=== PATIENT | male | born 2000 | race Caucasian/White ===

== ENCOUNTER → 2021-03-25 09:56 | Outpatient (BNVA) | payer OTHER, MEDICAID, SELFPAY | PROVIDERS: Visit Provider Emergency Medicine | DX: Z20.822 Contact with and (suspected) exposure to COVID-19 (principal) | CPT/HCPCS: 87635 ==

== ENCOUNTER 2023-10-21 19:10 | Emergency (ER) | payer MEDICAID, SELFPAY ==
[2023-10-21 19:28] VITALS: BP 114/76; PULSE 102; RESP 16; TEMP 36.9; O2SAT 100
--- NOTE | 2023-10-21 19:59 | ED_ITS ---
Documented by User: AISSATOU Valentino 10/21/23 22:05 HPI - General Adult 2 General: Chief complaint: General Medical Stated complaint: weak, abd pain rash jaw is tight Time Seen by Provider: 10/21/23 19:15 Source: patient Mode of arrival: ambulatory Limitations: no limitations History of Present Illness: Patient is a 23-year-old male presents to the emergency department complaining of multiple symptoms onset today after work. Patient works at a [employer] and states that when he got home he developed sudden facial numbness, jaw pain, weakness, and a rash that started on his chest and is spreading. He is also noting some difficulty with opening his mouth. He has never had the symptoms before and denies eating any new exotic foods. He does state that he is a smoker and smoked weed earlier. Parents in the room alleged that they want him tested for drugs. Patient denies any other symptoms at this time. He denies any known allergies. He has worked at the [employer] for a few years and states he has never had this issue before. He denies any chest pain, breathing difficulties, abdominal pain, or any other symptoms at this time. Onset (ago): hour(s) Associated symptoms: Reports rash; Deny chest pain, dyspnea, headache(s), nausea, palpitations or vomiting Review of Systems 2 General: Reports: 10 or more systems reviewed and unremarkable except in HPI and below Const: Denies: fever(s), chills or fatigue Eyes: Denies: change in vision ENMT: Reports: other (Jaw pain); Denies: throat pain, ear or mastoid pain or nasal discharge Card: Denies: chest pain, palpitations, swelling of feet/ankles or lightheadedness Resp: Denies: dyspnea, productive cough or wheezing GI: Denies: abdominal pain, nausea, vomiting, diarrhea or constipation : Denies: flank pain, difficulty urinating, dysuria or urinary frequency Musc: Denies: neck pain, back pain or joint pain Skin/Breast: Reports: rash Neuro: Reports: weakness in extremities and other (Facial numbness); Denies: headache(s) PFSH ED 2 PFSH: Social History Smoking and tobacco/nicotine status: current every day tobacco/nicotine user cigarettes Quit status (tobacco/nicotine): not considering quitting Alcohol intake: current Alcohol intake frequency: holidays/special occasions only Substance/Drug Use: never Physical Exam 2 Const: COMMON NORMALS: average body habitus, patient oriented x3 and no limitations GENERAL APPEARANCE: cooperative, well developed and anxious O RIENTATION/CONSCIOUSNESS: Yes awake, Yes oriented to person, Yes oriented to place and Yes oriented to time HENMT: COMMON NORMALS: normocephalic, atraumatic, hearing grossly normal bilaterally and Normal external nose present HEAD & SCALP: normocephalic and atraumatic FACE & SINUS: normal facial exam NOSE: Normal external nose present THROAT: posterior oropharynx abnormal erythema Eye: COMMON NORMALS: Equal, round and reactive pupils present, EOMs intact bilaterally and conjunctivae normal CONJUNCTIVA: Yes conjunctivae normal P UPIL: Yes Equal, round and reactive pupils present Neck/C-Spine: COMMON NORMALS: full ROM, no lymphadenopathy, supple, no meningeal signs and no JVD GENERAL: Yes normal visual inspection Chest: CHEST: Yes rash (Urticarial appearing rash with distal spreading) Resp: COMMON NORMALS: normal respiratory effort, No retractions, No use of accessory muscles and clear to auscultation bilaterally AUSCULTATION: clear to auscultation bilaterally Cardio: COMMON NORMALS: no JVD, regular rate, regular rhythm, No clicks present (Cardio), No murmurs present (Cardio) and No rub (Cardio) RATE: r egular rate RHYTHM: regular rhythm GI: COMMON NORMALS: Normal to inspection, nondistended, normoactive bowel sounds present, Soft to palpation and non-tender AUSCULTATION: Yes normoactive bowel sounds PALPATION: Yes Soft to palpation RECTAL EXAM: Yes deferred Extremity: COMMON NORMALS: normal to inspection, full ROM and capillary refill normal Neuro: COMMON NORMALS: patient oriented x3, CN's II-XII intact bilaterally, moves all extremities, no focal motor deficits and no sensory deficits noted SENSORIUM/ORIENTATION: Yes oriented to person, Yes oriented to place and Yes oriented to time MENINGEAL SIGNS: Yes no meningeal signs Psych: COMMON NORMALS: mental status grossly normal and Normal thought process present THOUGHT PROCESS: Normal thought process present Skin: NARRATIVE SKIN EXAM: Rash as previously noted under chest exam, distal spreading to the abdomen. Course 2 Vital Signs: Vital signs: Vital Signs Temperature 98.4 F 10/21/23 19:28 Pulse Rate 75 10/21/23 22:15 Respiratory Rate 16 10/21/23 22:15 Blood Pressure 113/64 10/21/23 22:15 Pulse Oximetry 98 10/21/23 22:15 Oxygen Delivery Me thod Room Air 10/21/23 21:30 MDM - General Adult Medical Decision Making Patient seen and evaluated today for weakness associated with rash, numbness, and jaw tightness. On arrival patient's vitals were unremarkable and I had little concern that he was having an anaphylactic reaction. Exam unremarkable for any angioedema, cardiopulmonary processes, or other abnormal findings. Patient appeared mildly anxious, however was cooperative. He did however have an urticarial appearing rash on his chest and abdomen. After a dose of Decadron and Benadryl, however, this improved. Blood work overall was negative for any signs of infection, electrolyte imbalances, or other concerning symptoms. His UA and urine drug screen were unremarkable aside from a positive marijuana screen, which he admits he smokes daily. Chest x-ray and EKG were also unremarkable. Due to his overall negative workup and clinical presentation, I believe the patient had an allergic reaction of unknown etiology. Family in the room states that he has had a similar incident in the past that also improved on its own. Patient's ED course has been stable and patient reports improvement of all of his symptoms upon recheck. Because of this, I feel confident that the patient can be discharged home with return precautions given for any acute worsening. Patient agrees with this plan. Lab Data I reviewed the patient's lab results. 10/21/23 20:13 10/21/23 20:13 Radiology Impressions Chest X-Ray 10/21/23 21:06 IMPRESSION: No acute findings. Laboratory Results WBC 12.99 10^3/uL (3.29-11.43) H 10/21/23 20:13 RBC 4.87 10^6/uL (3.85-5.65) 10/21/23 20:13 Hgb 15.00 g/dL (11.27-16.99) 10/21/23 20:13 Hct 43.7 % (37-53) 10/21/23 20:13 MCV 89.7 fl (82-101) 10/21/23 20:13 MCH 30.8 pg (27-33) 10/21/23 20:13 MCHC 34.3 g/dL (30-55) 10/21/23 20:13 RDW 12.1 % (12.1-15.1) 10/21/23 20:13 Plt Count 347 10^3/cmm (157-399) 10/21/23 20:13 MPV 9.1 fL (7.4-10.4) 10/21/23 20:13 Neut % (Auto) 75.0 % 10/21/23 20:13 Lymph % (Auto) 16.2 % 10/21/23 20:13 [place] % (Auto) 6.6 % 10/21/23 20:13 Eos % (Auto) 1.2 % 10/21/23 20:13 Baso % (Auto) 0.5 % 10/21/23 20:13 Neut # (Auto) 9.73 10^3/uL (1.8-7.7) H 10/21/23 20:13 Lymph # (Auto) 2.1 10^3/uL (0.8-4.8) 10/21/23 20:13 [place] # (Auto) 0.9 10^3/uL (0.2-0.9) 10/21/23 20:13 Eos # (Auto) 0.2 10^3/uL (0.0-0.8) 10/21/23 20:13 Baso # (Auto) 0.1 10^3/uL (0.0-0.1) 10/21/23 20:13 Nucleated RBC % (auto) 0 % 10/21/23 20:13 Nucleated RBCs # 0.0 /100WBC 10/21/23 20:13 Sodium 139 mmol/L (136-145) 10/21/23 20:13 Potassium 3.6 mmol/L (3.5-5.1) 10/21/23 20:13 Chloride 104 mmol/L (98-107) 10/21/23 20:13 Carbon Dioxide 19 mmol/L (22-29) L 10/21/23 20:13 Anion Gap 19.6 (5-19) H 10/21/23 20:13 BUN 14 mg/dL (6-20) 10/21/23 20:13 Creatinine 1.1 mg/dL (0.7-1.2) 10/21/23 20:13 GFR Calculation 83.7 mL/min (90-130) L 10/21/23 20:13 Glucose 148 mg/dL (65-115) H 10/21/23 20:13 Calculated Osmolality 291 mOsm/kg (285-295) 10/21/23 20:13 Calcium 10.0 mg/dL (8.5-10.5) 10/21/23 20:13 Total Bilirubin 0.3 mg/dL (0.15-1.2) 10/21/23 20:13 AST 18 U/L (0-40) 10/21/23 20:13 ALT 18 U/L (0-41) 10/21/23 20:13 Alkaline Phosphatase 78 U/L (40-130) 10/21/23 20:13 Total Protein 7.7 g/dL (6.6-8.7) 10/21/23 20:13 Albumin 4.7 g/dL (3.5-5.2) 10/21/23 20:13 Globulin 3.0 g/dL (1.3-4.6) 10/21/23 20:13 Urine Color Light yellow (Yellow) 10/21/23 20:15 Urine Appearance Clear (CLEAR) 10/21/23 20:15 Urine pH 8 (5-7) H 10/21/23 20:15 Ur Specific Emmet 1.015 (1.005-1.030) 10/21/23 20:15 Urine Protein Neg (Negative) 10/21/23 20:15 Urine Glucose (UA) Norm (Normal) 10/21/23 20:15 Urine Ketones Negative (Negative) 10/21/23 20:15 Urine Blood Neg (Negative) 10/21/23 20:15 Urine Nitrate Negative (Negative) 10/21/23 20:15 Urine Bilirubin Neg (Negative) 10/21/23 20:15 Prot Sulfosalicylic Acd Negative (Negative) 10/21/23 20:15 Urine Urobilinogen Neg mg/dL (Negative) 10/21/23 20:15 Ur Leukocyte Esterase Negative (Negative) 10/21/23 20:15 Urine Opiates Screen Negative ng/mL (Negative) 10/21/23 20:15 Ur Barbiturates Screen Negative ng/mL (Negative) 10/21/23 20:15 Ur Phencyclidine Scrn Negative ng/mL (Negative) 10/21/23 20:15 Ur Amphetamines Screen Negative ng/mL (Negative) 10/21/23 20:15 U Benzodiazepines Scrn Negative ng/mL (Negative) 10/21/23 20:15 Urine Cocaine Screen Negative ng/mL (Negative) 10/21/23 20:15 U Marijuana (THC) Screen Positive ng/mL (Negative) H 10/21/23 20:15 Group A Strep Rapid Negative (Negative) 10/21/23 20:24 All radiology interpretation(s) finalized by discharge Discharge Plan Discharge Patient Disposition: Home Clinical Impression: Allergic reaction Qualifiers: Encounter type: initial encounter Qualified Code(s): T78.40XA - Allergy, unspecified, initial encounter Condition: Stable Prescriptions: No Action albuterol sulfate 90 mcg/actuation HFA aerosol inhaler 2 puff inhalation Q6H PRN (Reason: shortness of breath or wheezing) Qty: 8.5 0RF azithromycin 250 mg tablet See Rx Instructions PO .COMPLEX Qty: 6 0RF Rx Instructions: take 2 tablets today (day 1), then one tablet for 4 days (days 2-5) PO yaetjmkadbdbxfc-zjzxkksmr-OL [Bromfed DM] 2-30-10 mg/5 mL syrup 7.5 ml PO Q6H PRN (Reason: cold symptoms) Qty: 160 0RF dexamethasone 2 mg tablet 6 mg PO DAILY 8 Days Qty: 24 0RF Discharge Orders: Discharge ED (Routine); Ordered 10/21/23 Ordered By: Vega Harris Discharge Diet: Usual diet Discharge Activity: Increase activity as tolerated Patient Instructions: Allergic Reaction Activity Restrictions/Additional Instructions: [id number] Benadryl for any recurrence of rash. Plenty of fluids. Follow-up with your primary care provider as needed. Return with any new or concerning symptoms. Stand Alone Forms: Work/School Release Coding Level of Care Code ED Forms Analysis Manager for Chg Fwd Documented by User: Dimitry Rosario, 10/22/23 05:33 HPI - General Adult 2 General: Chief complaint: General Medical Stated complaint: weak, abd pain rash jaw is tight Time Seen by Provider: 10/21/23 19:15 [facility] ED 2 PFSH: Social History Smoking and tobacco/nicotine status: current every day tobacco/nicotine user cigarettes Quit status (tobacco/nicotine): not considering quitting Alcohol intake: current Alcohol intake frequency: holidays/special occasions only Substance/Drug Use: never Course 2 Vital Signs: Vital signs: Vital Signs Temperature 98.4 F 10/21/23 19:28 Pulse Rate 75 10/21/23 22:15 Respiratory Rate 16 10/21/23 22:15 Blood Pressure 113/64 10/21/23 22:15 Pulse Oximetry 98 10/21/23 22:15 Oxygen Delivery Me thod Room Air 10/21/23 21:30 MDM - General Adult Medical Decision Making Patient seen and evaluated today for weakness associated with rash, numbness, and jaw tightness. On arrival patient's vitals were unremarkable and I had little concern that he was having an anaphylactic reaction. Exam unremarkable for any angioedema, cardiopulmonary processes, or other abnormal findings. Patient appeared mildly anxious, however was cooperative. He did however have an urticarial appearing rash on his chest and abdomen. After a dose of Decadron and Benadryl, however, this improved. Blood work overall was negative for any signs of infection, electrolyte imbalances, or other concerning symptoms. His UA and urine drug screen were unremarkable aside from a positive marijuana screen, which he admits he smokes daily. Chest x-ray and EKG were also unremarkable. Due to his overall negative workup and clinical presentation, I believe the patient had an allergic reaction of unknown etiology. Family in the room states that he has had a similar incident in the past that also improved on its own. Patient's ED course has been stable and patient reports improvement of all of his symptoms upon recheck. Because of this, I feel confident that the patient can be discharged home with return precautions given for any acute worsening. Patient agrees with this plan. Chart reviewed. Lab Data 10/21/23 20:13 10/21/23 20:13 Radiology Impressions Chest X-Ray 10/21/23 21:06 IMPRESSION: No acute findings. Laboratory Results WBC 12.99 10^3/uL (3.29-11.43) H 10/21/23 20:13 RBC 4.87 10^6/uL (3.85-5.65) 10/21/23 20:13 Hgb 15.00 g/dL (11.27-16.99) 10/21/23 20:13 Hct 43.7 % (37-53) 10/21/23 20:13 MCV 89.7 fl (82-101) 10/21/23 20:13 MCH 30.8 pg (27-33) 10/21/23 20:13 MCHC 34.3 g/dL (30-55) 10/21/23 20:13 RDW 12.1 % (12.1-15.1) 10/21/23 20:13 Plt Count 347 10^3/cmm (157-399) 10/21/23 20:13 MPV 9.1 fL (7.4-10.4) 10/21/23 20:13 Neut % (Auto) 75.0 % 10/21/23 20:13 Lymph % (Auto) 16.2 % 10/21/23 20:13 [place] % (Auto) 6.6 % 10/21/23 20:13 Eos % (Auto) 1.2 % 10/21/23 20:13 Baso % (Auto) 0.5 % 10/21/23 20:13 Neut # (Auto) 9.73 10^3/uL (1.8-7.7) H 10/21/23 20:13 Lymph # (Auto) 2.1 10^3/uL (0.8-4.8) 10/21/23 20:13 [place] # (Auto) 0.9 10^3/uL (0.2-0.9) 10/21/23 20:13 Eos # (Auto) 0.2 10^3/uL (0.0-0.8) 10/21/23 20:13 Baso # (Auto) 0.1 10^3/uL (0.0-0.1) 10/21/23 20:13 Nucleated RBC % (auto) 0 % 10/21/23 20:13 Nucleated RBCs # 0.0 /100WBC 10/21/23 20:13 Sodium 139 mmol/L (136-145) 10/21/23 20:13 Potassium 3.6 mmol/L (3.5-5.1) 10/21/23 20:13 Chloride 104 mmol/L (98-107) 10/21/23 20:13 Carbon Dioxide 19 mmol/L (22-29) L 10/21/23 20:13 Anion Gap 19.6 (5-19) H 10/21/23 20:13 BUN 14 mg/dL (6-20) 10/21/23 20:13 Creatinine 1.1 mg/dL (0.7-1.2) 10/21/23 20:13 GFR Calculation 83.7 mL/min (90-130) L 10/21/23 20:13 Glucose 148 mg/dL (65-115) H 10/21/23 20:13 Calculated Osmolality 291 mOsm/kg (285-295) 10/21/23 20:13 Calcium 10.0 mg/dL (8.5-10.5) 10/21/23 20:13 Total Bilirubin 0.3 mg/dL (0.15-1.2) 10/21/23 20:13 AST 18 U/L (0-40) 10/21/23 20:13 ALT 18 U/L (0-41) 10/21/23 20:13 Alkaline Phosphatase 78 U/L (40-130) 10/21/23 20:13 Total Protein 7.7 g/dL (6.6-8.7) 10/21/23 20:13 Albumin 4.7 g/dL (3.5-5.2) 10/21/23 20:13 Globulin 3.0 g/dL (1.3-4.6) 10/21/23 20:13 Urine Color Light yellow (Yellow) 10/21/23 20:15 Urine Appearance Clear (CLEAR) 10/21/23 20:15 Urine pH 8 (5-7) H 10/21/23 20:15 Ur Specific Emmet 1.015 (1.005-1.030) 10/21/23 20:15 Urine Protein Neg (Negative) 10/21/23 20:15 Urine Glucose (UA) Norm (Normal) 10/21/23 20:15 Urine Ketones Negative (Negative) 10/21/23 20:15 Urine Blood Neg (Negative) 10/21/23 20:15 Urine Nitrate Negative (Negative) 10/21/23 20:15 Urine Bilirubin Neg (Negative) 10/21/23 20:15 Prot Sulfosalicylic Acd Negative (Negative) 10/21/23 20:15 Urine Urobilinogen Neg mg/dL (Negative) 10/21/23 20:15 Ur Leukocyte Esterase Negative (Negative) 10/21/23 20:15 Urine Opiates Screen Negative ng/mL (Negative) 10/21/23 20:15 Ur Barbiturates Screen Negative ng/mL (Negative) 10/21/23 20:15 Ur Phencyclidine Scrn Negative ng/mL (Negative) 10/21/23 20:15 Ur Amphetamines Screen Negative ng/mL (Negative) 10/21/23 20:15 U Benzodiazepines Scrn Negative ng/mL (Negative) 10/21/23 20:15 Urine Cocaine Screen Negative ng/mL (Negative) 10/21/23 20:15 U Marijuana (THC) Screen Positive ng/mL (Negative) H 10/21/23 20:15 Group A Strep Rapid Negative (Negative) 10/21/23 20:24 Discharge Plan Discharge Patient Disposition: Home Clinical Impression: Allergic reaction Qualifiers: Encounter type: initial encounter Qualified Code(s): T78.40XA - Allergy, unspecified, initial encounter Condition: Stable Prescriptions: No Action albuterol sulfate 90 mcg/actuation HFA aerosol inhaler 2 puff inhalation Q6H PRN (Reason: shortness of breath or wheezing) Qty: 8.5 0RF azithromycin 250 mg tablet See Rx Instructions PO .COMPLEX Qty: 6 0RF Rx Instructions: take 2 tablets today (day 1), then one tablet for 4 days (days 2-5) PO yswcvbipkxhirky-rgrjwswkl-FX [Bromfed DM] 2-30-10 mg/5 mL syrup 7.5 ml PO Q6H PRN (Reason: cold symptoms) Qty: 160 0RF dexamethasone 2 mg tablet 6 mg PO DAILY 8 Days Qty: 24 0RF Discharge Orders: Discharge ED (Routine); Ordered 10/21/23 Ordered By: Vega Harris Discharge Diet: Usual diet Discharge Activity: Increase activity as tolerated Patient Instructions: Allergic Reaction Activity Restrictions/Additional Instructions: Uint-kpe-jnperth Benadryl for any recurrence of rash. Plenty of fluids. Follow-up with your primary care provider as needed. Return with any new or concerning symptoms. Stand Alone Forms: Work/School Release Coding Level of Care Code ED Forms Analysis Manager for Lisa Camarena
--- NOTE | 2023-10-21 20:08 | ECG_ITS ---
[facility] Test Date: 2023-10-21 Pat Name: Richie Mace Department: Room: Gender: Male Paranormal Investigator: : 2000 Requested By: Vega Gill Order Number: [id number] Pereyra MD: Burton Lloyd M.D. Measurements Intervals [place] Rate: 85 P: 70 DE: 133 QRS: 79 QRSD: 99 T: 71 QT: 370 QTc: 440 Interpretive Statements SINUS RHYTHM No previous ECG available for comparison Electronically Signed On 10-21-2023 21:52:12 CDT by Burton Lloyd M.D. [id number]
[2023-10-21 20:20] LABS: Add Urine Microscopic? NO; Charge for UA Resulting for Rev
[2023-10-21 20:22] LABS: Basophils # 0.1 10^3/uL (0.0-0.1); Basophils % 0.5 %; Eosinophils # 0.2 10^3/uL (0.0-0.8); Eosinophils % 1.2 %; Hematocrit 43.7 % (37-53); Lymphocytes # 2.1 10^3/uL (0.8-4.8); Lymphocytes % 16.2 %; Mean Corpuscular HGB Conc 34.3 g/dL (30-55); Mean Corpuscular Hemoglobin 30.8 pg (27-33); Mean Corpuscular Volume 89.7 fl (82-101); Mean Platelet Volume 9.1 fL (7.4-10.4); Monocytes # 0.9 10^3/uL (0.2-0.9); Monocytes % 6.6 %; Neutrophils # 9.73 10^3/uL (1.8-7.7); Nucleated Red Blood Cells % 0 %; Platelet Count 347 10^3/cmm (157-399); Red Blood Count 4.87 10^6/uL (3.85-5.65); Red Cell Distribution Width 12.1 % (12.1-15.1); White Blood Count 12.99 10^3/uL (3.29-11.43)
[2023-10-21 20:26] LABS: Glucose Urine UA Norm (Normal); Protein Urine Neg (Negative); Specific Gravity, Urine 1.015 (1.005-1.030); Urine Appearance Clear (CLEAR); Urine Color Light yellow (Yellow); pH Urine 8 (5-7)
[2023-10-21] MEDS: sodium chloride 0.9% 1,000 ML 999 ML IV (20:26)
[2023-10-21 20:27] LABS: Bilirubin Urine Neg (Negative); Blood Urine Neg (Negative); Ketones Urine Negative (Negative); Leukocyte Esterase Urine Negative (Negative); Nitrate Urine Negative (Negative); Sulfosalicylic Acid Urine Negative (Negative); Urobilinogen Urine Neg (Negative)
[2023-10-21 20:31] LABS: Amphetamines Screen Urine Negative (Negative); Barbiturates Screen Urine Negative (Negative); Benzodiazepines Screen Urine Negative (Negative); Cocaine Screen Urine Negative (Negative); Opiate Screen Urine Negative (Negative); PCP Screen Urine Negative (Negative); THC Screen Urine Positive (Negative)
[2023-10-21] MEDS: diphenhydrAMINE 50 mg/mL SDV 1mL IVP (20:39)
[2023-10-21] MEDS: dexamethasone 10 mg/mL INJ 8 MG IVP (20:42)
[2023-10-21 20:43] LABS: Alanine Aminotransferase 18 U/L (0-41); Albumin Level 4.7 g/dL (3.5-5.2); Alkaline Phosphatase 78 U/L (40-130); Anion Gap 19.6 (5-19); Aspartate Amino Transferase 18 U/L (0-40); Blood Urea Nitrogen 14 mg/dL (6-20); Carbon Dioxide 19 mmol/L (22-29); Chloride 104 mmol/L (98-107); Glomerular Filtration Rate 83.7 mL/min (90-130); Glucose 148 mg/dL (65-115); Osmolality Calculated 291 mOsm/kg (285-295); Potassium 3.6 mmol/L (3.5-5.1); Sodium 139 mmol/L (136-145); Total Bilirubin 0.3 mg/dL (0.15-1.2); Total Protein 7.7 g/dL (6.6-8.7)
[2023-10-21 21:03] LABS: Rapid Strep A Test Negative (Negative)
--- NOTE | 2023-10-21 21:06 | XRR_ITS ---
PROCEDURE INFORMATION: Exam: XR Chest Exam date and time: 10/21/2023 9:11 PM Age: 23 years old Clinical indication: Pain; Chest pressure; Additional info: Weak/chest discomfort TECHNIQUE: Imaging protocol: Radiologic exam of the chest. Views: 1 view. COMPARISON: No relevant prior studies available. FINDINGS: Tubes, catheters and devices: Rectangular metallic density projecting over the lower abdomen is presumably a belt buckle. Lungs: Unremarkable. No consolidation. Pleural spaces: Unremarkable. No pleural effusion. No pneumothorax. Heart/Mediastinum: Unremarkable. No cardiomegaly. Bones/joints: Unremarkable. XR/XR chest 1V portable [id number] IMPRESSION: No acute findings.
[2023-10-21 21:30] VITALS: BP 118/67; PULSE 86; O2SAT 94
[2023-10-21 22:15] VITALS: BP 113/64; PULSE 75; RESP 16; O2SAT 98
== END 2023-10-21 22:15 | disposition home or self-care (01) ==
PROVIDERS: Emergency Provider Physician Assistant
DX: T78.40XA Allergy, unspecified, initial encounter (principal); F17.210 Nicotine dependence, cigarettes, uncomplicated; X58.XXXA Exposure to other specified factors, initial encounter
CPT/HCPCS: 71045; 80053; 80306; 81003; 85025; 87081; 87880; 93005; 96374; 96375; 99285; J1100; J1200; J7030

== ENCOUNTER 2023-10-28 21:59 | Emergency (ER) | payer MEDICAID, SELFPAY ==
[2023-10-28 22:00] VITALS: BP 130/76; PULSE 81; RESP 16; O2SAT 99
[2023-10-28 22:10] VITALS: BP 130/76; O2SAT 98
--- NOTE | 2023-10-28 22:10 | ECG_ITS ---
[facility] Test Date: 2023-10-28 Pat Name: Richie Mace Department: Room: Gender: Male Sql Database Developer: : 2000 Requested By: Jass López Order Number: [id number] Hafsa MD: Burton Lloyd M.D. Measurements Intervals [place] Rate: 83 P: 71 CO: 124 QRS: 77 QRSD: 104 T: 66 QT: 363 QTc: 427 Interpretive Statements SINUS RHYTHM Compared to ECG 10/21/2023 20:23:26 No significant changes Electronically Signed On 10-29-2023 11:45:26 CDT by Burton Lloyd M.D. [id number] f
--- NOTE | 2023-10-28 22:10 | XRR_ITS ---
PROCEDURE INFORMATION: Exam: XR Chest Exam date and time: 10/28/2023 10:14 PM Age: 23 years old Clinical indication: Pain; Chest pressure; Additional info: Chest pain TECHNIQUE: Imaging protocol: Radiologic exam of the chest. Views: 1 view. COMPARISON: CR (CHEST, ) 10/21/2023 9:11 PM FINDINGS: Lungs: Pulmonary hyperinflation. No pulmonary consolidation. Pleural spaces: No pleural effusion or pneumothorax. Heart/Mediastinum: 3 cm ovoid hyperdensity in the right paratracheal region, not definitively present on prior study, likely artifactual. Heart size within normal limits. The cardiomediastinal silhouette is otherwise unremarkable. Bones/joints: Unremarkable. XR/XR chest 1V portable [id number] IMPRESSION: 1. No acute cardiopulmonary disease. 2. Pulmonary hyperinflation. 3. 3 cm ovoid hyperdensity in the right paratracheal region, not definitively present on prior study, likely artifactual. Continued follow-up versus CT as indicated.
--- NOTE | 2023-10-28 22:11 | ED_ITS ---
HPI - Chest Pain 2 General: Chief Complaint: Chest Pain Stated Complaint: drug use Time Seen by Provider: 10/28/23 22:09 History of Present Illness: Patient presents to the ER by EMS with complaints of whole body tingling. Patient said after working come home drink couple beers smoked couple bowls and then did some lipids and then he started feeling his whole body tingling had some pain in his chest. This is the first time patient ever done lipids. Patient is never had pain in his chest before pain is all gone now patient is chest pain-free but still has a tingling going on. Review of Systems 2 General: Reports: 10 or more systems reviewed and unremarkable except in HPI and below PFSH ED 2 PFSH: Social History Smoking and tobacco/nicotine status: current every day tobacco/nicotine user cigarettes Quit status (tobacco/nicotine): not considering quitting Alcohol intake: current Alcohol intake frequency: holidays/special occasions only Substance/Drug Use: never Physical Exam 2 Const: COMMON NORMALS: no acute distress, average body habitus, patient oriented x3, no limitations, healthy appearing, alert and well nourished HENMT: COMMON NORMALS: normocephalic, atraumatic, hearing grossly normal bilaterally, external ears normal, EAC's normal, Normal external nose present, moist oral mucous membranes and oropharynx normal HEAD & SCALP: normocephalic and atraumatic NOSE: Normal external nose present EXTERNAL EAR: Yes external ears normal EXTERNAL AUDITORY CANAL: EAC's normal Neck/C-Spine: COMMON NORMALS: no JVD Resp: COMMON NORMALS: normal respiratory effort, No retractions, No use of accessory muscles and clear to auscultation bilaterally AUSCULTATION: clear to auscultation bilaterally Cardio: COMMON NORMALS: no JVD, regular rate, regular rhythm, S1 normal heart sound present, S2 normal heart sound present, No gallops present (Cardio), No clicks present (Cardio), No murmurs present (Cardio) and No rub (Cardio) R ATE: regular rate RHYTHM: regular rhythm HEART SOUNDS: S1 normal heart sound present and S2 normal heart sound present GI: COMMON NORMALS: Normal to inspection, nondistended, normoactive bowel sounds present, Soft to palpation, non-tender, No hepatosplenomegaly present and no masses PALPATION: Yes Soft to palpation and Yes No hepatosplenomegaly present Neuro: COMMON NORMALS: patient oriented x3 SENSORIUM/ORIENTATION: Yes alert Course 2 Vital Signs: Vital signs: Vital Signs Pulse Rate 85 10/28/23 23:31 Respiratory Rate 20 H 10/28/23 23:31 Blood Pressure 111/62 10/28/23 23:31 Pulse Oximetry 98 10/28/23 23:31 Oxygen Delivery Me thod Room Air 10/28/23 23:08 MDM - Chest Pain Medical Decision Making Patient comes in with tingling all over after doing lipids. Patient did mention he had low blood chest pain earlier. Patient was worked up in a standard chest pain fashion which everything was found to be negative, patient be discharged follow-up with his PCP on an as-needed basis. Differential Diagnosis Unlikely acute massive pulmonary embolism, acute respiratory failure, acute myocardial infarction, cardiac arrest or sudden cardiac Medical Records I reviewed the patient's medical records. Lab Data I reviewed the patient's lab results. 10/28/23 21:42 10/28/23 21:42 Radiology Impressions Chest X-Ray 10/28/23 22:10 IMPRESSION: 1. No acute cardiopulmonary disease. 2. Pulmonary hyperinflation. 3. 3 cm ovoid hyperdensity in the right paratracheal region, not definitively present on prior study, likely artifactual. Continued follow-up versus CT as indicated. Laboratory Results WBC 12.55 10^3/uL (3.29-11.43) H 10/28/23 21:42 RBC 4.92 10^6/uL (3.85-5.65) 10/28/23 21:42 Hgb 15.40 g/dL (11.27-16.99) 10/28/23 21:42 Hct 43.2 % (37-53) 10/28/23 21:42 MCV 87.8 fl (82-101) 10/28/23 21:42 MCH 31.3 pg (27-33) 10/28/23 21:42 MCHC 35.6 g/dL (30-55) 10/28/23 21:42 RDW 12.7 % (12.1-15.1) 10/28/23 21:42 Plt Count 405 10^3/cmm (157-399) H 10/28/23 21:42 MPV 9.2 fL (7.4-10.4) 10/28/23 21:42 Neut % (Auto) 60.2 % 10/28/23 21:42 Lymph % (Auto) 28.8 % 10/28/23 21:42 Nash % (Auto) 7.3 % 10/28/23 21:42 Eos % (Auto) 2.6 % 10/28/23 21:42 Baso % (Auto) 0.8 % 10/28/23 21:42 Neut # (Auto) 7.55 10^3/uL (1.8-7.7) 10/28/23 21:42 Lymph # (Auto) 3.6 10^3/uL (0.8-4.8) 10/28/23 21:42 Nash # (Auto) 0.9 10^3/uL (0.2-0.9) 10/28/23 21:42 Eos # (Auto) 0.3 10^3/uL (0.0-0.8) 10/28/23 21:42 Baso # (Auto) 0.1 10^3/uL (0.0-0.1) 10/28/23 21:42 Nucleated RBC % (auto) 0 % 10/28/23 21:42 Nucleated RBCs # 0.0 /100WBC 10/28/23 21:42 Sodium 139 mmol/L (136-145) 10/28/23 21:42 Potassium 4.1 mmol/L (3.5-5.1) 10/28/23 21:42 Chloride 105 mmol/L (98-107) 10/28/23 21:42 Carbon Dioxide 19 mmol/L (22-29) L 10/28/23 21:42 Anion Gap 19.1 (5-19) H 10/28/23 21:42 BUN 12 mg/dL (6-20) 10/28/23 21:42 Creatinine 1.0 mg/dL (0.7-1.2) 10/28/23 21:42 GFR Calculation 93.4 mL/min (90-130) 10/28/23 21:42 Glucose 102 mg/dL (65-115) 10/28/23 21:42 Calculated Osmolality 288 mOsm/kg (285-295) 10/28/23 21:42 Calcium 10.4 mg/dL (8.5-10.5) 10/28/23 21:42 Total Bilirubin 0.4 mg/dL (0.15-1.2) 10/28/23 21:42 AST 18 U/L (0-40) 10/28/23 21:42 ALT 19 U/L (0-41) 10/28/23 21:42 Alkaline Phosphatase 82 U/L (40-130) 10/28/23 21:42 Troponin T Baseline < 6 ng/L (0-15) 10/28/23 21:42 Total Protein 7.6 g/dL (6.6-8.7) 10/28/23 21:42 Albumin 5.0 g/dL (3.5-5.2) 10/28/23 21:42 Globulin 2.6 g/dL (1.3-4.6) 10/28/23 21:42 Urine Color Yellow (Yellow) 10/28/23 22:45 Urine Appearance Clear (CLEAR) 10/28/23 22:45 Urine pH 8 (5-7) H 10/28/23 22:45 Ur Specific [place] 1.015 (1.005-1.030) 10/28/23 22:45 Urine Protein Neg (Negative) 10/28/23 22:45 Urine Glucose (UA) Norm (Normal) 10/28/23 22:45 Urine Ketones Negative (Negative) 10/28/23 22:45 Urine Blood Neg (Negative) 10/28/23 22:45 Urine Nitrate Negative (Negative) 10/28/23 22:45 Urine Bilirubin Neg (Negative) 10/28/23 22:45 Prot Sulfosalicylic Acd Negative (Negative) 10/28/23 22:45 Urine Urobilinogen Neg mg/dL (Negative) 10/28/23 22:45 Ur Leukocyte Esterase Negative (Negative) 10/28/23 22:45 Urine Opiates Screen Negative ng/mL (Negative) 10/28/23 22:45 Ur Barbiturates Screen Negative ng/mL (Negative) 10/28/23 22:45 Ur Phencyclidine Scrn Negative ng/mL (Negative) 10/28/23 22:45 Ur Amphetamines Screen Negative ng/mL (Negative) 10/28/23 22:45 U Benzodiazepines Scrn Negative ng/mL (Negative) 10/28/23 22:45 Urine Cocaine Screen Negative ng/mL (Negative) 10/28/23 22:45 U Marijuana (THC) Screen Positive ng/mL (Negative) H 10/28/23 22:45 Ethyl Alcohol < 10 mg/dL (0-10) 10/28/23 21:42 All radiology interpretation(s) finalized by discharge Discharge Plan Discharge Patient Disposition: Home Clinical Impression: Atypical chest pain, Tingling Condition: Stable Prescriptions: No Action albuterol sulfate 90 mcg/actuation HFA aerosol inhaler 2 puff inhalation Q6H PRN (Reason: shortness of breath or wheezing) Qty: 8.5 0RF azithromycin 250 mg tablet See Rx Instructions PO .COMPLEX Qty: 6 0RF Rx Instructions: take 2 tablets today (day 1), then one tablet for 4 days (days 2-5) PO mkzkroynuykrxhn-upgjvlnkj-VR [Bromfed DM] 2-30-10 mg/5 mL syrup 7.5 ml PO Q6H PRN (Reason: cold symptoms) Qty: 160 0RF dexamethasone 2 mg tablet 6 mg PO DAILY 8 Days Qty: 24 0RF Discharge Orders: Discharge ED (Routine); Ordered 10/28/23 Ordered By: Jass López Patient Instructions: Chest Pain (ED), Numbness and Tingling Activity Restrictions/Additional Instructions: Your workup in the ER was negative. Please follow-up with your family practitioner for further evaluation and treatment. Please do not do any more whippets. Coding Level of Care Code ED Labeling Associate for Lisa Camarena
[2023-10-28 22:16] LABS: Basophils # 0.1 10^3/uL (0.0-0.1); Basophils % 0.8 %; Eosinophils # 0.3 10^3/uL (0.0-0.8); Eosinophils % 2.6 %; Hematocrit 43.2 % (37-53); Lymphocytes # 3.6 10^3/uL (0.8-4.8); Lymphocytes % 28.8 %; Mean Corpuscular HGB Conc 35.6 g/dL (30-55); Mean Corpuscular Hemoglobin 31.3 pg (27-33); Mean Corpuscular Volume 87.8 fl (82-101); Mean Platelet Volume 9.2 fL (7.4-10.4); Monocytes # 0.9 10^3/uL (0.2-0.9); Monocytes % 7.3 %; Neutrophils # 7.55 10^3/uL (1.8-7.7); Neutrophils % 60.2 %; Nucleated Red Blood Cells % 0 %; Platelet Count 405 10^3/cmm (157-399); Red Blood Count 4.92 10^6/uL (3.85-5.65); Red Cell Distribution Width 12.7 % (12.1-15.1); White Blood Count 12.55 10^3/uL (3.29-11.43)
[2023-10-28 22:27] LABS: Troponin(5th) Baseline < 6 ng/L (0-15)
[2023-10-28 22:28] LABS: Alanine Aminotransferase 19 U/L (0-41); Alkaline Phosphatase 82 U/L (40-130); Anion Gap 19.1 (5-19); Aspartate Amino Transferase 18 U/L (0-40); Blood Urea Nitrogen 12 mg/dL (6-20); Calcium 10.4 mg/dL (8.5-10.5); Carbon Dioxide 19 mmol/L (22-29); Chloride 105 mmol/L (98-107); Globulin 2.6 g/dL (1.3-4.6); Glomerular Filtration Rate 93.4 mL/min (90-130); Glucose 102 mg/dL (65-115); Osmolality Calculated 288 mOsm/kg (285-295); Potassium 4.1 mmol/L (3.5-5.1); Sodium 139 mmol/L (136-145); Total Bilirubin 0.4 mg/dL (0.15-1.2); Total Protein 7.6 g/dL (6.6-8.7)
[2023-10-28 22:29] LABS: Alcohol Level < 10 mg/dL (0-10)
[2023-10-28 22:38] VITALS: BP 115/65; PULSE 82; RESP 15; O2SAT 97
[2023-10-28 22:49] LABS: Add Urine Microscopic? NO; Charge for UA Resulting for Rev
[2023-10-28 23:00] LABS: Amphetamines Screen Urine Negative (Negative); Barbiturates Screen Urine Negative (Negative); Benzodiazepines Screen Urine Negative (Negative); Cocaine Screen Urine Negative (Negative); Opiate Screen Urine Negative (Negative); PCP Screen Urine Negative (Negative); THC Screen Urine Positive (Negative)
[2023-10-28 23:05] LABS: Bilirubin Urine Neg (Negative); Blood Urine Neg (Negative); Glucose Urine UA Norm (Normal); Ketones Urine Negative (Negative); Leukocyte Esterase Urine Negative (Negative); Nitrate Urine Negative (Negative); Protein Urine Neg (Negative); Specific Gravity, Urine 1.015 (1.005-1.030); Sulfosalicylic Acid Urine Negative (Negative); Urine Appearance Clear (CLEAR); Urine Color Yellow (Yellow); Urobilinogen Urine Neg (Negative); pH Urine 8 (5-7)
[2023-10-28 23:08] VITALS: BP 111/42; PULSE 77; RESP 23; O2SAT 94
[2023-10-28 23:31] VITALS: BP 111/62; PULSE 85; RESP 20; O2SAT 98
== END 2023-10-28 23:33 | disposition home or self-care (01) ==
PROVIDERS: Emergency Provider Emergency Medicine
DX: R07.89 Other chest pain (principal); R20.2 Paresthesia of skin; F17.210 Nicotine dependence, cigarettes, uncomplicated
CPT/HCPCS: 71045; 80053; 80306; 80307; 81003; 84484; 85025; 93005; 99285

== ENCOUNTER 2023-11-01 17:15 | Emergency (ER) | payer MEDICAID, SELFPAY ==
--- NOTE | 2023-11-01 17:15 | ECG_ITS ---
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 Measurements Intervals [place] Rate: 116 P: 81 [place]: 131 QRS: 81 QRSD: 94 T: 67 QT: 343 QTc: 478 Interpretive Statements SINUS TACHYCARDIA LEFT ATRIAL ENLARGEMENT [-0.15mV P-WAVE IN V1/V2] POSSIBLE RIGHT VENTRICULAR CONDUCTION DELAY [RSR (QR) IN V1/V2] Compared to ECG 10/28/2023 22:05:01 Atrial abnormality now present Sinus rhythm no longer present Electronically Signed On 11-01-2023 17:25:50 CDT by Lolita Blandon M.D. [id number]
[2023-11-01 17:19] VITALS: BP 136/76; PULSE 103; RESP 18; TEMP 36.8; O2SAT 100; BMI 23.6
[2023-11-01 17:21] VITALS: BP 118/71; PULSE 100; O2SAT 98
--- NOTE | 2023-11-01 17:39 | W.ED.CHESTPA ---
HPI - Chest Pain General: Chief Complaint: Chest Pain Stated Complaint: Chest Pain Time Seen by Provider: 11/01/23 17:23 History of Present Illness: This is a healthy 23-year-old man who presents to the emergency room with chest pain and facial numbness and arm numbness. He says after he smokes marijuana he started feeling this way and it continued to worsen. He is never anything like this happen before. He smokes marijuana regularly. No cough. No fever. No altered mental status. Review of Systems Narrative: Constitutional symptoms: Negative except as documented in HPI. Skin symptoms: Negative except as documented in HPI. Eye symptoms: Negative except as documented in HPI. ENMT symptoms: Negative except as documented in HPI. Respiratory symptoms: Negative except as documented in HPI. Cardiovascular symptoms: Negative except as documented in HPI. Gastrointestinal symptoms: Negative except as documented in HPI. Genitourinary symptoms: Negative except as documented in HPI. Musculoskeletal symptoms: Negative except as documented in HPI. Neurologic symptoms: Negative except as documented in HPI. Psychiatric symptoms: Negative except as documented in HPI. Endocrine symptoms: Negative except as documented in HPI. PFSH ED PFSH: Social History Smoking and tobacco/nicotine status: current every day tobacco/nicotine user cigarettes Quit status (tobacco/nicotine): not considering quitting Alcohol intake: current Alcohol intake frequency: holidays/special occasions only Substance/Drug Use: never Physical Exam Narrative: EXAM NARRATIVE: General: Alert, no acute distress. Skin: Warm, dry. Head: Normocephalic, atraumatic. Neck: Supple, trachea midline. Eye: Extraocular movements are intact. Ears, nose, mouth and throat: mucosa moist. Cardiovascular: Regular, Normal peripheral perfusion. Respiratory: Lungs are clear to auscultation, respirations are non-labored, breath sounds are equal, Symmetrical chest wall expansion. Gastrointestinal: Soft, Nontender, Non distended, Normal bowel sounds. Musculoskeletal: Normal ROM, no deformity. Neurological: Alert and oriented, No focal neurological deficit observed. Psychiatric: Cooperative, appropriate mood & affect. Course Vital Signs: Vital signs: Vital Signs Temperature 98.2 F 11/01/23 17:19 Pulse Rate 86 11/01/23 18:30 Respiratory Rate 16 11/01/23 18:21 Blood Pressure 112/64 11/01/23 18:21 Pulse Oximetry 92 11/01/23 18:30 Oxygen Delivery Me thod Room Air 11/01/23 17:19 MDM - Chest Pain Medical Decision Making Patient's symptoms are most consistent with tachypnea and hypocapnia. Facial numbness and bilateral hand numbness along with chest pain. Perhaps related to his marijuana use today. EKG: Time 1715 rate 116. Sinus tachycardia. Normal sinus rhythm, No ST-T changes, no ectopy, normal CO & QRS intervals, This was reviewed and interpreted by myself the ER physician at 1720 p.m. No radiology studies performed this visit Other Data Assessment and plan: - Discharged home - Discussed plan with patient. Answered any questions. - Evaluation and treatment of this problem were appropriate in the emergency setting. Discharge Plan Discharge Patient Disposition: Home Clinical Impression: Atypical chest pain Condition: Stable Prescriptions: No Action albuterol sulfate 90 mcg/actuation HFA aerosol inhaler 2 puff inhalation Q6H PRN (Reason: shortness of breath or wheezing) Qty: 8.5 0RF azithromycin 250 mg tablet See Rx Instructions PO .COMPLEX Qty: 6 0RF Rx Instructions: take 2 tablets today (day 1), then one tablet for 4 days (days 2-5) PO jzlgdmoyldpaoaj-csxolyoqd-UQ [Bromfed DM] 2-30-10 mg/5 mL syrup 7.5 ml PO Q6H PRN (Reason: cold symptoms) Qty: 160 0RF dexamethasone 2 mg tablet 6 mg PO DAILY 8 Days Qty: 24 0RF Discharge Orders: Discharge ED (Routine); Ordered 11/01/23 Ordered By: Imelda Cano Discharge Diet: Usual diet Discharge Activity: Resume usual activity Patient Instructions: Opioid Safety, Pain Management Activity Restrictions/Additional Instructions: You have been screened and evaluated and felt safe for discharge. Health conditions do change or evolve sometimes and as such it is important that you follow up with your Primary Doctor to be re checked, 3-5 days is a general good time frame for follow up. You are always welcome to return to the ED for re assessment if your symptoms are worsening or you have new concerns Coding Level of Care Code ED Rocket Engine Mechanic for Lisa Camarena
[2023-11-01] MEDS: LORazepam 1 mg Tablet PO (17:44)
[2023-11-01 17:51] VITALS: BP 118/71; PULSE 95; O2SAT 97
[2023-11-01 18:21] VITALS: BP 112/64; PULSE 74; RESP 16; O2SAT 94
[2023-11-01 18:30] VITALS: PULSE 86; O2SAT 92
[2023-11-01 19:27] VITALS: BP 115/61; PULSE 86; O2SAT 92
== END 2023-11-01 19:29 | disposition home or self-care (01) ==
PROVIDERS: Emergency Provider Emergency Medicine
DX: R07.89 Other chest pain (principal); F17.210 Nicotine dependence, cigarettes, uncomplicated
CPT/HCPCS: 93005; 99283

== ENCOUNTER 2023-11-08 16:53 | Emergency (ER) | payer MEDICAID, SELFPAY ==
[2023-11-08 17:05] VITALS: BP 121/67; PULSE 100; RESP 16; TEMP 37.4; O2SAT 99
--- NOTE | 2023-11-08 17:44 | XRR_ITS ---
PROCEDURE INFORMATION: Exam: XR Chest Exam date and time: 11/08/2023 7:05 PM Age: 23 years old Clinical indication: Chest pressure; Patient HX: C/O chest pain TECHNIQUE: Imaging protocol: Radiologic exam of the chest. Views: 1 view. COMPARISON: CR (CHEST, ) 10/28/2023 10:14 PM FINDINGS: Lungs: Hyperinflated lungs may be due to deep physiologic inspiratory effort versus airways disease/air trapping. No consolidation. Pleural spaces: Unremarkable. No pleural effusion. No pneumothorax. Heart/Mediastinum: Unremarkable. No cardiomegaly. Bones/joints: Unremarkable. XR/XR chest 1V portable 52019 IMPRESSION: Lung hyperinflation could be physiologic or due to air trapping. Otherwise no significant plain radiographic abnormality . No interval change from prior imaging.
--- NOTE | 2023-11-08 17:44 | ECG_ITS ---
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 Measurements Intervals [place] Rate: 100 P: 83 [place]: 120 QRS: 83 QRSD: 102 T: 71 QT: 343 QTc: 444 Interpretive Statements SINUS TACHYCARDIA Compared to ECG 11/01/2023 17:15:13 Atrial abnormality no longer present Electronically Signed On 11-08-2023 23:11:50 CDT by Burton Lloyd M.D. [id number] f
--- NOTE | 2023-11-08 19:22 | ED_ITS ---
HPI - Chest Pain General: Chief Complaint: Chest Pain Stated Complaint: Chest Pains Time Seen by Provider: 11/08/23 19:18 History of Present Illness: 23-year-old man who presents to the doctors hospital room again with chest pressure after smoking marijuana. He says it is basically the same as what happened last time he was here. I saw him at that time. He says this happened a couple times and he managed to breathe out of it but this time he could not. He is somewhat improved now. Review of Systems Narrative: Constitutional symptoms: Negative except as documented in HPI. Skin symptoms: Negative except as documented in HPI. Eye symptoms: Negative except as documented in HPI. ENMT symptoms: Negative except as documented in HPI. Respiratory symptoms: Negative except as documented in HPI. Cardiovascular symptoms: Negative except as documented in HPI. Gastrointestinal symptoms: Negative except as documented in HPI. Genitourinary symptoms: Negative except as documented in HPI. Musculoskeletal symptoms: Negative except as documented in HPI. Neurologic symptoms: Negative except as documented in HPI. Psychiatric symptoms: Negative except as documented in HPI. Endocrine symptoms: Negative except as documented in HPI. PFSH ED PFSH: Social History Smoking and tobacco/nicotine status: current every day tobacco/nicotine user cigarettes Quit status (tobacco/nicotine): not considering quitting Alcohol intake: current Alcohol intake frequency: holidays/special occasions only Substance/Drug Use: never Physical Exam Narrative: EXAM NARRATIVE: General: Alert, no acute distress. Skin: warm and dry Head: Normocephalic Neck: Trachea midline Eye: Extraocular movements are intact. Ears, nose, mouth and throat: Oral mucosa moist Respiratory: Respirations are non-labored Musculoskeletal: Normal ROM Neurological: Alert and oriented to person, place, time, and situation, No focal neurological deficit observed. Psychiatric: Cooperative, patient appears a bit anxious Course Vital Signs: Vital signs: Vital Signs Temperature 99.3 F 11/08/23 17:05 Pulse Rate 100 11/08/23 17:05 Respiratory Rate 16 11/08/23 17:05 Blood Pressure 121/67 11/08/23 17:05 Pulse Oximetry 99 11/08/23 17:05 Oxygen Delivery Me thod Room Air 11/08/23 17:05 MDM - Chest Pain Medical Decision Making Medical decision making: Differential diagnosis including but not limited to and based on the above HPI, review of systems and physical exam: EKG and a chest x-ray were ordered. I read believe this is anxiety related Orders placed to evaluate differential diagnosis based on the above differential, HPI and physical exam Chest x-ray: No acute process. No infiltrate. No pneumothorax. No cardiomegaly. This was reviewed and interpreted by myself the ER physician. EKG: Time 1703. Rate 100. Sinus tachycardia, No ST-T changes, no ectopy, normal [place] & QRS intervals, This was reviewed and interpreted by myself the ER physician. Reexamination: Lab Data Radiology Impressions Chest X-Ray 11/08/23 17:44 IMPRESSION: Lung hyperinflation could be physiologic or due to air trapping. Otherwise no significant plain radiographic abnormality . No interval change from prior imaging. XR interpretation done by ED provider, pending radiology final review Other Data Assessment and plan: - Discharged home - Discussed plan with patient. Answered any questions. - Evaluation and treatment of this problem were appropriate in the emergency setting. Discharge Plan Discharge Patient Disposition: Home Clinical Impression: Atypical chest pain, Anxiety Condition: Stable Prescriptions: New hydroxyzine HCl 25 mg tablet 25 mg PO BID PRN (Reason: anxiety) Qty: 30 0RF famotidine 40 mg tablet 40 mg PO DAILY Qty: 30 0RF No Action albuterol sulfate 90 mcg/actuation HFA aerosol inhaler 2 puff inhalation Q6H PRN (Reason: shortness of breath or wheezing) Qty: 8.5 0RF azithromycin 250 mg tablet See Rx Instructions PO .COMPLEX Qty: 6 0RF Rx Instructions: take 2 tablets today (day 1), then one tablet for 4 days (days 2-5) PO befnquoovpitmrg-hhlwjpbog-XA [Bromfed DM] 2-30-10 mg/5 mL syrup 7.5 ml PO Q6H PRN (Reason: cold symptoms) Qty: 160 0RF dexamethasone 2 mg tablet 6 mg PO DAILY 8 Days Qty: 24 0RF Discharge Orders: Discharge ED (Routine); Ordered 11/08/23 Ordered By: Imelda Cano Patient Instructions: Anxiety (ED), Opioid Safety, Pain Management Activity Restrictions/Additional Instructions: You have been screened and evaluated and felt safe for discharge. Health conditions do change or evolve sometimes and as such it is important that you follow up with your Primary Doctor to be re checked, 3-5 days is a general good time frame for follow up. You are always welcome to return to the ED for re assessment if your symptoms are worsening or you have new concerns Coding Level of Care Code ED Pin Machine Operator for Lisa Camarena
[2023-11-08 19:50] VITALS: BP 110/73; PULSE 75; RESP 18; O2SAT 99
== END 2023-11-08 19:51 | disposition home or self-care (01) ==
PROVIDERS: Emergency Provider Emergency Medicine
DX: R07.89 Other chest pain (principal); F41.9 Anxiety disorder, unspecified; F17.210 Nicotine dependence, cigarettes, uncomplicated
CPT/HCPCS: 71045; 93005; 99284